=== PATIENT | female | born 1955 | race Caucasian/White ===

== ENCOUNTER 2017-06-26 07:31 | Outpatient (CLI) ==
--- NOTE | 2017-06-26 09:48 | CT ---
Exam: CT of the abdomen pelvis with intravenous contrast. Comparison: None available. Reason for exam: Left flank pain. History of renal cyst. Findings No pleural effusion, or focal consolidation in the partially imaged lung bases. The gallbladder has been removed. There is a small to moderately sized hiatal hernia. The liver parenchyma, spleen, pancreas, and adrenal glands appear grossly unremarkable. There is a large left-sided renal hypodensity measuring 12 cm that likely represents a renal cyst. No hydronephrosis, nephrolithiasis, or hydroureter is seen in either kidney There is no focal small bowel dilatation or transition point. There are multiple fluid-filled loops of small bowel seen throughout the abdomen. Mild wall thickening of the rectal wall may be accentuated by non distension. The bladder appears gr ossly unremarkable. No suspicious appearing osteoblastic or osteolytic lesions. Degenerative disease is seen in the lumbosacral spine. Impression: 1. Large left-sided renal hypodensity is statistically a cyst. If clinical concern exists, further i maging may be performed. No hydronephrosis, hydroureter, or nephrolithiasis in either kidney. 2. Mild wall thickening in the distal rectum may be accentuated by non distension. If clinical conc iqra exists, direct visualization may be performed.
== END 2017-06-26 07:32 | disposition home or self-care (01) ==
LOC: RAD 07:31
PROVIDERS: ATTEND Internal Medicine
DX: R10.9 Unspecified abdominal pain (principal); N28.1 Cyst of kidney, acquired

== ENCOUNTER 2017-07-29 09:34 | Outpatient (CLI) ==
--- NOTE | 2017-07-30 09:31 | MAMMO ---
EXAM: Bilateral digital screening mammogram (2-D and 3-D) History: Screening Comparison: Bilateral mammogram 09/03/2011 Findings: MLO and CC views of bilateral breasts demonstrate scattered fibroglandular breast parenchy ma. CAD was reviewed by the radiologist. Tomosynthesis was performed. Focal asymmetry within the up per-outer quadrant of the right breast posterior depth. No suspicious microcalcifications. Impression: Indeterminate focal asymmetry within the upper-outer quadrant of the right breast. Pranav mmend further evaluation with spot compression views and possible ultrasound. BIRADS 0
== END 2017-07-29 09:35 | disposition home or self-care (01) ==
LOC: RAD 09:34
PROVIDERS: ATTEND Internal Medicine
DX: Z12.31 Encounter for screening mammogram for malignant neoplasm of breast (principal)
CPT/HCPCS: 77067

== ENCOUNTER 2018-11-30 12:42 | Outpatient (CLI) ==
--- NOTE | 2018-11-30 13:09 | DI ---
EXAM: CHEST FRONTAL AND LATERAL VIEWS HISTORY: Cough. COMPARISON: 07/25/2008 FINDINGS: Heart size remains within normal limits. Calcified mediastinal lymph nodes are again note d consistent with old granulomatous disease. A few scattered calcifications are also seen in the [place] mainly on the right. No acute infiltrates are seen. No vascular congestion. There is no c onsolidation, visible pleural fluid or pneumothorax. Bones reveal no acute fracture. IMPRESSION: Evidence of old granulomatous disease. No acute cardiopulmonary process.
== END 2018-11-30 12:43 | disposition home or self-care (01) ==
LOC: RAD 12:42
PROVIDERS: ATTEND Internal Medicine
DX: R05 Cough (principal)